=== PATIENT | male | born 1990 | race American Indian/Alaskan Native ===

== ENCOUNTER 2018-06-17 21:01 | Emergency (ER) | payer BC ==
[2018-06-17] MEDS ORDERED: Sodium Chloride 0.9% 1,000 ML IV STA (21:22)
--- NOTE | 2018-06-17 21:37 | ED PDOC ---
Arrival/HPI - General Chief Complaint: Medical Clearance Time Seen by Provider: 06/17/18 21:16 Historian: Patient - History of Present Illness Narrative History of Present Illness (Text): 06/17/18 21:33 28 year old male, whose past medical hsitory includes hay fever allergies, presents to the emergency department for evaluation of dry mouth status post medication issue. Patient informs taking benadryl for his allergies. Patient states he then accidentally took claratin, thinking it was another benadryl tab. Patient informs of drowsiness, and brief palpitations. Patient states he became anxious thinking he possibly should not have mixed medications. Patient states he currently feels much better. Patient denies any chest pain, shortness of breath, fever, chills, rash, or any other complaints. Time/Duration: Prior to Arrival Symptom Onset: Gradual Symptom Course: Improving Activities at Onset: Light Context: Home Past Medical History - Provider Review Nursing Documentation Reviewed: Yes - Infectious Disease Hx of Infectious Diseases: None - Cardiac Hx Cardiac Disorders: No - Pulmonary Hx Respiratory Disorders: No - Neurological Hx Neurological Disorder: No - HEENT Hx HEENT Disorder: No - Renal Hx Renal Disorder: No - Endocrine/Metabolic Hx Endocrine Disorders: No - Hematological/Oncological Hx Blood Disorders: No - Integumentary Hx Dermatological Disorder: No - Musculoskeletal/Rheumatological Hx Musculoskeletal Disorders: No - Gastrointestinal Hx Gastrointestinal Disorders: No - Genitourinary/Gynecological Hx Genitourinary Disorders: No - Psychiatric Hx Psychophysiologic Disorder: No Hx Substance Use: No - Surgical History Hx Orthopedic Surgery: Yes (rt hand fx) - Anesthesia Hx Anesthesia: Yes Hx Anesthesia Reactions: No Hx Malignant Hyperthermia: No Family/Social History - Physician Review Nursing Documentation Reviewed: Yes Family/Social History: No Known Family HX Smoking Status: 1 cigar/da Hx Alcohol Use: No Hx Substance Use: No Allergies/Home Meds Allergies/Adverse Reactions: Allergies No Known Allergies Allergy (Verified 06/17/18 21:15) Home Medications: Home Meds Medication Instructions Recorded Confirmed No Known Home Med 06/17/18 06/17/18 Review of Systems - Physician Review All systems were reviewed & negative as marked: Yes - Review of Systems Constitutional: absent: Fevers, Night Sweats ENT: Other (dry mouth) Respiratory: absent: SOB Cardiovascular: Palpitations. absent: Chest Pain Skin: absent: Rash Psychiatric: Anxiety Physical Exam - Systems Exam Head: Present: Atraumatic, Normocephalic Pupils: Present: PERRL Extroacular Muscles: Present: EOMI Conjunctiva: Present: Normal Mouth: Present: Moist Mucous Membranes Neck: Present: Normal Range of Motion Respiratory/Chest: Present: Clear to Auscultation, Good Air Exchange. No: Respiratory Distress, Accessory Muscle Use Cardiovascular: Present: Regular Rate and Rhythm, Normal S1, S2. No: Murmurs Abdomen: No: Tenderness, Distention, Peritoneal Signs Back: Present: Normal Inspection Upper Extremity: Present: Normal Inspection. No: Cyanosis, Edema Lower Extremity: Present: Normal Inspection. No: Edema Neurological: Present: GCS=15, CN II-XII Intact, Speech Normal Skin: Present: Warm, Dry, Normal Color. No: Rashes Psychiatric: Present: Alert, Oriented x 3, Normal Insight, Normal Concentration Medical Decision Making ED Course and Treatment: 06/17/18 21:39 Impression: 28 year old male presents for evaluation s/p mixing allergy medication. Plan: -- EKG -- IV fluids -- Reassess and disposition Prior Visits: Notes and results from previous visits were reviewed. Progress Notes: 06/17/18 21:41 EKG Reviewed by me, shows: Normal sinus rhythm @ 85bpm No acute changes. 06/18/18 00:00 Patient states he feels much better following treatment and period of observation here in the emergency room. - Medication Orders Current Medication Orders: Sodium Chloride (Sodium Chloride 0.9%) 1,000 mls @ 999 mls/hr IV .[id number] STA Stop: 06/17/18 22:22 - Scribe Statement The provider has reviewed the documentation as recorded by the Irma Perez Provider Scribe Attestation: All medical record entries made by the Scribe were at my direction and personally dictated by me. I have reviewed the chart and agree that the record accurately reflects my personal performance of the history, physical exam, medical decision making, and the department course for this patient. I have also personally directed, reviewed, and agree with the discharge instructions and disposition. Disposition/Present on Arrival - Present on Arrival Any Indicators Present on Arrival: No History of DVT/PE: No History of Uncontrolled Diabetes: No Urinary Catheter: No History of Decub. Ulcer: No History Surgical Site Infection Following: None - Disposition Have Diagnosis and Disposition been Completed?: Yes Diagnosis: Seasonal allergies, Adverse drug reaction Disposition: HOME/ ROUTINE Disposition Time: 23:58 Patient Plan: Discharge Patient Problems: Current Active Problems Problem Status Onset Adverse drug reaction Acute Seasonal allergies Acute Condition: GOOD Discharge Instructions (ExitCare): Seasonal Allergies (DC), Adverse Drug Reactions, Adult (DC) Additional Instructions: Follow up with your doctor this week/avoid mixing medication in the future Forms: [employer] (Arabic)
[2018-06-17 21:49] VITALS: RESP 14; TEMP 98
[2018-06-18 00:23] VITALS: BP 120/75; PULSE 82; O2SAT 98
--- NOTE | 2018-06-18 15:07 | CARD ---
APPROVED REPORT Date of service: 06/17/2018 EKG Measurement Heart [id number] <Conclusion> Normal sinus rhythm Poor R Progression V1-V3 Correlate Clinically. High Voltage can be Normal For Young Age.
== END 2018-06-18 00:21 | disposition home or self-care (01) ==
LOC: ED 21:01
DX: J30.2 Other seasonal allergic rhinitis (principal); T50.995A Adverse effect of other drugs, medicaments and biological substances, initial encounter; Y92.89 Other specified places as the place of occurrence of the external cause
CPT/HCPCS: 93005; 99281; J7030